=== PATIENT | female | born 1940 | race Caucasian/White ===

== ENCOUNTER 2017-01-23 05:51 | Day surgery (SDC) | payer MEDICARE ==
[2017-01-23] MEDS ORDERED: Dextrose 5%-Lactated Ringers 1,000 ML IV SCH (06:15)
[2017-01-23] MEDS ORDERED: Glycopyrrolate 0.2 MG/ML 2 ML SYRINGE IVPUSH ONE (07:00)
[2017-01-23] MEDS ORDERED: Propofol 200 MG/20 ML SDV ONE (07:30)
[2017-01-23] MEDS ORDERED: fentaNYL 100 MCG/2 ML SDV ONE (07:31)
[2017-01-23] MEDS ORDERED: Midazolam 1 MG/ML 2 ML SDV ONE (07:31)
[2017-01-23 09:25] VITALS: BP 105/60
--- NOTE | 2017-01-26 09:29 | OR ---
DATE OF PROCEDURE: 01/23/2017 PREOPERATIVE DIAGNOSIS: Intermittent epigastric pain. POSTOPERATIVE DIAGNOSES: Intermittent epigastric pain associated with: 1. Gastric polyp at the junction of antrum and body of the stomach. 2. Erosive antral gastritis. OPERATIVE PROCEDURE: Esophagogastroduodenoscopy with: 1. Biopsies of antrum for CLOtest. 2. Gastric polypectomy by snare technique. ANESTHESIA: IV sedation. INDICATION FOR PROCEDURE: A 76-year-old female presenting with some intermittent epigastric pain. She presently has not on any significant symptoms for about 2 weeks and has been off the Protonix for that perior of time as well. She had been on Protonix 40 mg daily. The plan is to proceed with upper GI endoscopy with biopsies and/or dilation as indicated. Potential risks including bleeding and perforation were discussed, and the patient wishes to proceed. DETAILS OF THE PROCEDURE: The patient was taken to the operating room and placed in a left lateral decubitus position. IV sedation was administered, after which the upper GI endoscope was passed orally through the length of the esophagus and into the stomach with retroflexion view of the fundus, and thereafter, through the pyloric channel and into the duodenum to the junction of the third and fourth portions. The findings included an abnormal hypopharynx, larynx, upper esophageal sphincter, and esophageal body. There was no significant inflammation or hiatal hernia at the EG junction. Within the stomach, there was a single small polyp that was measured around 3 mm to 4 mm. This is a slightly raised polyp with some white coloration, and apart from that, there was, in the antrum, diffuse erosive gastritis with multiple small erosions being present. No true ulcers were seen in the pyloric channel, and the visualized portions of the duodenum were unremarkable. At this point, biopsies were taken from the antrum for the CLOtest for H. pylori. Following this, using snare technique, polypectomy was obtained in 2 separate pieces and was sent for histologic evaluation. No bleeding from the biopsy sites was seen and the scope was withdrawn. The procedure was then concluded. The patient will be started back on the Protonix. We will notify the patient if the CLOtest is positive, or if there is something more significant than expected from the findings from the gastric polyp histology. Otherwise, she can follow up with Dr. Romero in about 2 weeks. One option on this patient would be to try something like Zantac or Pepcid, which would have less in the way of side effects than long-term proton pump inhibitor use. Lennox Fernandez MD /[id number]
== END 2017-01-23 09:43 | disposition home or self-care (01) ==
LOC: JP.SDS 05:51
PROVIDERS: ATTEND Surgery
DX: K29.50 Unspecified chronic gastritis without bleeding (principal); E66.9 Obesity, unspecified; Z88.8 Allergy status to other drugs, medicaments and biological substances; K27.9 Peptic ulcer, site unspecified, unspecified as acute or chronic, without hemorrhage or perforation
CPT/HCPCS: 43239; 43251; 87081; 88305; J2250; J2704; J3010; J7042

== ENCOUNTER 2020-04-13 03:04 | Emergency (ER) | payer MEDICARE ==
--- NOTE | 2020-04-13 03:27 | EDM.PDOC ---
ED HPI GENERAL MEDICAL PROBLEM - General Chief Complaint: Back Pain or Injury Stated Complaint: MEDICAL [facility] Time Seen by Provider: 04/13/20 03:21 Source of Information: Reports: Patient History Limitations: Reports: No Limitations - History of Present Illness INITIAL COMMENTS - FREE TEXT/NARRATIVE: pt arrived with a history of severe pain in the rt cva area radiating to the abdoman. She states this started suddenly yesterday pm. She has not noted blood in the urine. She does have a chronic sciatic problem in her left hip area. Onset: Other ( started yesterday pm. ) Duration: Hour(s): Location: Reports: Abdomen, Back Associated Symptoms: Reports: Weakness Right Posterior Back Pain Score (Numeric/FACES): 2 - Related Data Allergies Allergy/AdvReac Type Severity Reaction Status Date / Time NSAIDS (Non-Steroidal Allergy Bleeding Verified 04/13/20 03:15 Anti-Inflamma Home Meds: Home Meds Cholecalciferol (Vitamin D3) [Vitamin D3] 2,000 unit PO DAILY 01/26/16 [History] rOPINIRole HCl [Ropinirole HCl] 2 mg PO .EVENING PRN 01/26/16 [History] Brinzolamide [Azopt 1% Ophth Susp] 1 drop OP BID 06/25/19 [History] Latanoprost/Pf [Latanoprost 0.005% Eye Drop] 1 drop OP DAILY 06/25/19 [History] Dorzolamide [Trusopt 2% Ophth Soln] 1 drop TOP BID 04/13/20 [History] Past Medical History HEENT History: Reports: Cataract, Glaucoma, Impaired Vision Cardiovascular History: Reports: High Cholesterol Other Cardiovascular History: RLS Respiratory History: Reports: PE Other Respiratory History: PE 2012 Gastrointestinal History: Reports: Gastritis, GI Bleed, Irritable Bowel Syndrome, PUD Genitourinary History: Reports: None 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 RECOVERY SPECIALIST 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: Reports: Dysfunctional Uterine Bleeding, Endometriosis, Fibroids, , Prolapsed Uterus Other ASSET RECOVERY SPECIALIST History: H/o prolapsed bladder Musculoskeletal History: Reports: Arthritis, Back Pain, Chronic, Fracture, Fibromyalgia, Osteoarthritis, Osteoporosis Other Musculoskeletal History: L leg pain R knee pain Neurological History: Reports: None Other Neuro History: Intermittent R/L sciatica Endocrine/Metabolic History: Reports: Osteopenia, Osteoporosis Hematologic History: Reports: Anemia, Blood Transfusion(s) - Infectious Disease History Infectious Disease History: Reports: Chicken Pox, Measles, Mumps, Rubella - Past Surgical History Head Surgeries/Procedures: Reports: None HEENT Surgical History: Reports: Cataract Surgery, Radiocarotid Ectomy, Tonsillectomy Cardiovascular Surgical History: Reports: None Respiratory Surgical History: Reports: None GI Surgical History: Reports: Appendectomy, Colonoscopy, EGD Female Surgical History: Reports: Hysterectomy, Other (See Below) Other Female Surgeries/Procedures: surgery to fix prolapsed uterus Other Neurological Surgeries/Procedures: L3-4 pins and screws Musculoskeletal Surgical History: Reports: None Dermatological Surgical History: Reports: None Social & Family History - Family History Family Medical History: Noncontributory - Caffeine Use Caffeine Use: Reports: Tea ED ROS GENERAL - Review of Systems Review Of Systems: See Below Constitutional: Reports: No Symptoms HEENT: Reports: No Symptoms Respiratory: Reports: No Symptoms Cardiovascular: Reports: No Symptoms Endocrine: Reports: No Symptoms GI/Abdominal: Reports: Abdominal Pain, Other ( started in the rt back area and came around to the front. ) : Reports: No Symptoms Musculoskeletal: Reports: No Symptoms Skin: Reports: No Symptoms Neurological: Reports: No Symptoms Psychiatric: Reports: Anxiety ED EXAM,LOWER BACK PAIN/INJURY - Physical Exam Exam: See Below Text/Narrative:: pt arrived with a history of pain in the rt flank area coming around to the front. Pt was nauseated.Her pain started suddenly yesterday and has continued. Exam Limited By: No Limitations General Appearance: Alert, Anxious, Severe Distress, Other (pt received fentyl in the Ambulance which did give her relieve. ) Ears: Normal TMs Nose: Normal Inspection Throat/Mouth: Normal Inspection Head: Atraumatic Neck: Normal Inspection Respiratory/Chest: No Respiratory Distress Cardiovascular: Regular Rate, Rhythm, Tachycardia GI/Abdominal: Tender, Other (pt is tender in the rt cva area. ) (Female) Exam: Deferred Rectal (Female) Exam: Deferred Back Exam: Normal Inspection Extremities: Normal Inspection Neurological: Alert, Oriented x 3 Course - Vital Signs Last Recorded V/S: Last Vital Signs Temp 36.6 C 04/13/20 04:51 Pulse 67 04/13/20 04:51 Resp 16 04/13/20 04:51 BP 147/69 H 04/13/20 04:51 Pulse Ox 95 04/13/20 04:51 - Orders/Labs/Meds Labs: Laboratory Tests 04/13/20 04/13/20 04/13/20 Range/Units 03:35 03:35 03:35 WBC 6.7 (4.5-11.0) K/uL RBC 4.53 (3.30-5.50) M/uL Hgb 13.3 (12.0-15.0) g/dL Hct 42.4 (36.0-48.0) % MCV 94 (80-98) fL MCH 29 (27-31) pg MCHC 31 L (32-36) % Plt Count 184 (150-400) K/uL Neut % (Auto) 74 H (36-66) % Lymph % (Auto) 14 L (24-44) % [place] % (Auto) 10 H (2-6) % Eos % (Auto) 2 (2-4) % Baso % (Auto) 0 (0-1) % Sodium 146 (140-148) mmol/L Potassium 3.8 (3.6-5.2) mmol/L Chloride 110 H (100-108) mmol/L Carbon Dioxide 27 (21-32) mmol/L Anion Gap 12.8 (5.0-14.0) mmol/L BUN 26 H (7-18) mg/dL Creatinine 1.0 (0.6-1.0) mg/dL Est Cr Clr Drug Dosing 40.68 mL/min Estimated GFR (MDRD) 54 L (>60) Glucose 130 H (74-106) mg/dL Calcium 8.3 L (8.5-10.1) mg/dL Total Bilirubin 0.5 (0.2-1.0) mg/dL AST 23 (15-37) U/L ALT 22 (12-78) U/L Alkaline Phosphatase 47 (46-116) U/L C-Reactive Protein (0.0-0.3) mg/dL Total Protein 6.3 L (6.4-8.2) g/dL Albumin 3.7 (3.4-5.0) g/dL Globulin 2.6 (2.3-3.5) g/dL Albumin/Globulin Ratio 1.4 (1.2-2.2) Amylase (25-115) U/L Lipase (73-393) U/L Urine Color Yellow (YELLOW) Urine Appearance Clear (CLEAR) Urine pH 7.5 (5.0-8.0) Ur Specific [place] 1.025 (1.008-1.030) Urine Protein Negative (NEGATIVE) mg/dL Urine Glucose (UA) Negative (NEGATIVE) mg/dL Urine Ketones Negative (NEGATIVE) mg/dL Urine Occult Blood Trace-intact H (NEGATIVE) Urine Nitrite Negative (NEGATIVE) Urine Bilirubin Negative (NEGATIVE) Urine Urobilinogen 0.2 (0.2-1.0) EU/dL Ur Leukocyte Esterase Negative (NEGATIVE) Urine RBC 0-5 (0-5) Urine WBC 0-5 (0-5) Ur Epithelial Cells Rare Amorphous Sediment Few Urine Bacteria Few Urine Mucus Not seen 04/13/20 04/13/20 04/13/20 Range/Units 03:47 03:48 03:56 WBC (4.5-11.0) K/uL RBC (3.30-5.50) M/uL Hgb (12.0-15.0) g/dL Hct (36.0-48.0) % MCV (80-98) fL MCH (27-31) pg MCHC (32-36) % Plt Count (150-400) K/uL Neut % (Auto) (36-66) % Lymph % (Auto) (24-44) % [place] % (Auto) (2-6) % Eos % (Auto) (2-4) % Baso % (Auto) (0-1) % Sodium (140-148) mmol/L Potassium (3.6-5.2) mmol/L Chloride (100-108) mmol/L Carbon Dioxide (21-32) mmol/L Anion Gap (5.0-14.0) mmol/L BUN (7-18) mg/dL Creatinine (0.6-1.0) mg/dL Est Cr Clr Drug Dosing mL/min Estimated GFR (MDRD) (>60) Glucose (74-106) mg/dL Calcium (8.5-10.1) mg/dL Total Bilirubin (0.2-1.0) mg/dL AST (15-37) U/L ALT (12-78) U/L Alkaline Phosphatase (46-116) U/L C-Reactive Protein 0.05 (0.0-0.3) mg/dL Total Protein (6.4-8.2) g/dL Albumin (3.4-5.0) g/dL Globulin (2.3-3.5) g/dL Albumin/Globulin Ratio (1.2-2.2) Amylase 29 (25-115) U/L Lipase 170 (73-393) U/L Urine Color (YELLOW) Urine Appearance (CLEAR) Urine pH (5.0-8.0) Ur Specific [place] (1.008-1.030) Urine Protein (NEGATIVE) mg/dL Urine Glucose (UA) (NEGATIVE) mg/dL Urine Ketones (NEGATIVE) mg/dL Urine Occult Blood (NEGATIVE) Urine Nitrite (NEGATIVE) Urine Bilirubin (NEGATIVE) Urine Urobilinogen (0.2-1.0) EU/dL Ur Leukocyte Esterase (NEGATIVE) Urine RBC (0-5) Urine WBC (0-5) Ur Epithelial Cells Amorphous Sediment Urine Bacteria Urine Mucus Meds: Medications Discontinued Medications Generic Name Dose Route Start Last Admin Trade Name Freq PRN Reason Stop Dose Admin Sodium Chloride 1,000 mls @ 999 mls/hr 04/13/20 04:00 04/13/20 03:56 Normal Saline IV 999 mls/hr ASDIRECTED EMY Administration Sodium Chloride 1,000 mls @ 999 mls/hr 04/13/20 04:45 04/13/20 05:16 Normal Saline IV 999 mls/hr ASDIRECTED EMY Administration Ketorolac Tromethamine 30 mg 04/13/20 04:42 04/13/20 04:47 Toradol IVPUSH 04/13/20 04:43 30 mg ONETIME ONE Administration Tamsulosin HCl 0.4 mg 04/13/20 04:40 04/13/20 04:47 Flomax PO 04/13/20 04:41 0.4 mg ONETIME ONE Administration - Re-Assessments/Exams Free Text/Narrative Re-Assessment/Exam: 04/13/20 04:47 pt had a clear urine. Her cat scan showed a possible 3 mm stone in the rt mid ureter. . Pt was given flomax and torodol so will see how her pain settles down. 04/15/20 07:10 pt settled down nicely and she was able to rest. Pt will be discharged and will strain her urine and if this does not pass she will need to see urology Departure - Departure Time of Disposition: 07:01 Disposition: Home, Self-Care 01 Condition: Fair Clinical Impression: Ureteral calculi - Discharge Information Instructions: Bladder Stone Referrals: Ezio Romero MD [Primary Care Provider] - Forms: ED Department Discharge Care Plan Goals: strain all urine, push fluids. flomax .4 1 tab daily, torodol 10 mg q6h prn for pain, percocet 5/325 q6h prn for pain. follow up in the next 3 days with regular physian if stone does not pass. A urology consult would be inorder at that point. Sepsis Event Note (ED) - Evaluation Sepsis Screening Result: No Definite Risk
[2020-04-13] MEDS ORDERED: Sodium Chloride 0.9% 1,000 ML IV SCH ×2 (04:00→04:45)
--- NOTE | 2020-04-13 04:36 | CRLCT ---
INDICATION: Right flank pain TECHNIQUE: CT Abdomen and pelvis without i.v. contrast. Coronal and sagittal reformats were obtained. COMPARISON: 04/27/2018 FINDINGS: Lower chest: Unremarkable. Liver: Unremarkable. Spleen: Unremarkable. Pancreas: Unremarkable. Gallbladder: Unremarkable. Kidney: The appendix cannot be identified but there are no inflammatory changes noted in the right lower quadrant. Multiple cystic lesions are present in the upper pole of the left kidney with the largest measuring 9.3 cm and has a small focus of marginal calcification. Peripelvic cysts are present in the renal sinus bilaterally. Moderate right renal pelvic caliectasis is present with a right retroperitoneal calcification measuring 3 mm on image 53, series 5. Adrenal: Unremarkable. Bowel: Mild sigmoid diverticulosis is present with no evidence of diverticulitis. A small fat containing paraumbilical hernia is present. Vascular: Unremarkable. Lymph: Unremarkable. Peritoneum: See above. No pneumoperitoneum is seen. No significant ascites is noted. Pelvis: The patient is status post prior hysterectomy. Soft tissue: Unremarkable. Bone: Anterior and posterior spinal fusion with total laminectomies are noted from L2-L5. IMPRESSION: 1. Moderate right renal pelvic caliectasis is present with a right retroperitoneal calcification measuring 3 mm on image 53, series 5. correlation with history urinalysis is recommended to exclude a stone in the mid right ureter. Dictated by Finesse Abraham MD @ 04/13/2020 4:35:00 AM Please note that all CT scans at this facility use dose modulation, iterative reconstruction, and/or weight-based dosing when appropriate to reduce radiation dose to as low as reasonably achievable. Dictated by: Finesse Abraham MD @ 04/13/2020 04:35:06 (Electronically Signed)
[2020-04-13] MEDS ORDERED: Tamsulosin 0.4 MG Cap.ER PO ONE (04:40)
[2020-04-13] MEDS ORDERED: Ketorolac 30 MG/ML SDV IVPUSH ONE (04:42)
[2020-04-13 04:52] VITALS: BP 147/69; PULSE 67
== END 2020-04-13 07:23 | disposition home or self-care (01) ==
LOC: JP.ED 03:04
DX: N20.1 Calculus of ureter (principal); R00.0 Tachycardia, unspecified; Z88.6 Allergy status to analgesic agent; Z90.710 Acquired absence of both cervix and uterus
CPT/HCPCS: 36415; 74176; 80053; 81001; 82150; 83690; 85025; 86140; 96361; 96374; 99285; A9270; J1885; J7030; 99284

== ENCOUNTER 2020-05-11 16:26 | Emergency (ER) | payer MEDICARE ==
[2020-05-11] MEDS ORDERED: HYDROmorphone 0.5 MG/0.5 ML Syringe IVPUSH ONE (17:08)
--- NOTE | 2020-05-11 17:08 | EDM.PDOC ---
<OfficerAgustín - Last Filed: 05/12/20 00:15> ED HPI GENERAL MEDICAL PROBLEM - General Chief Complaint: Flank Pain Stated Complaint: KIDNEY STONES, VOMITING Time Seen by Provider: 05/11/20 16:55 - Related Data Allergies Allergy/AdvReac Type Severity Reaction Status Date / Time NSAIDS (Non-Steroidal Allergy Bleeding Verified 05/11/20 16:45 Anti-Inflamma Home Meds: Home Meds Cholecalciferol (Vitamin D3) [Vitamin D3] 2,000 unit PO DAILY 01/26/16 [History] rOPINIRole HCl [Ropinirole HCl] 2 mg PO BEDTIME PRN 01/26/16 [History] Brinzolamide [Azopt 1% Ophth Susp] 1 drop OP BID 06/25/19 [History] Latanoprost/Pf [Latanoprost 0.005% Eye Drop] 1 drop OP DAILY 06/25/19 [History] Dorzolamide [Trusopt 2% Ophth Soln] 1 drop TOP BID 04/13/20 [History] Ketorolac [Toradol] 10 mg PO Q6HR PRN 05/11/20 [History] Tamsulosin HCl 1 tab PO DAILY 05/11/20 [History] Ketorolac [Toradol] 10 mg PO Q6H PRN #20 tab 05/12/20 [Rx] Departure - Departure Time of Disposition: 00:18 Disposition: Home, Self-Care 01 Condition: Fair Clinical Impression: Renal rupture Qualifiers: Encounter type: initial encounter Laterality: right Qualified Code(s): S37.061A - Major laceration of right kidney, initial encounter - Discharge Information Prescriptions: Ketorolac [Toradol] 10 mg PO Q6H PRN #20 tab PRN Reason: Pain Instructions: Flank Pain, Adult, [id number] Referrals: Ezio Romero MD [Primary Care Provider] - Forms: ED Department Discharge Additional Instructions: Continue to use your ketorolac as needed for pain control, will use your oxycodone for breakthrough pain, a new prescription for the ketorolac has been faxed to [facility] pharmacy. Please keep your follow-up appointment with urology on Monday, please return to the emergency department with fever or increasing pain - Assessment/Plan Plan: Assessment Acuity = acute Site and laterality = pyelosinus extravasation Etiology = probably related to nephrolithiasis Manifestations = flank pain Location of injury = Home Lab values = CBC, BMP, urinalysis unremarkable CT scan describes the extravasation above Plan Call discussed case with Dr. Hollingsworth urologist at [address] [facility] also discussed the case with Dr. Abraham from radiology, felt this was not ureter rupture and was contained within the kidney she does have an appointment with urology on Monday, plan is discharged home follow-up as outpatient This note was dictated using [employer] voice recognition software please call with any questions on syntax or grammar. <Ezio Collins - Last Filed: 05/15/20 08:09> ED HPI GENERAL MEDICAL PROBLEM - General Source of Information: Reports: Patient, Family History Limitations: Reports: No Limitations - History of Present Illness INITIAL COMMENTS - FREE TEXT/NARRATIVE: 79-year-old female with persistent recurring right flank pain radiating around to the right lower abdomen for the past month. Onset: Other (Symptoms have been waxing and waning for a month) Duration: Other (Increase in symptoms over the past 2 days) Location: Reports: Back (Right flank and right lower abdomen) Associated Symptoms: Reports: Malaise, Nausea/Vomiting. 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: Dysfunctional Uterine Bleeding, Endometriosis, Fibroids, , Prolapsed Uterus Other ROLL BUILDER History: H/o prolapsed bladder Musculoskeletal History: Reports: Arthritis, Back Pain, Chronic, Fracture, Fibromyalgia, Osteoarthritis, Osteoporosis Other Musculoskeletal History: L leg pain R knee pain Neurological History: Reports: None Other Neuro History: Intermittent R/L sciatica Endocrine/Metabolic History: Reports: Osteopenia, Osteoporosis Hematologic History: Reports: Anemia, Blood Transfusion(s) - Infectious Disease History Infectious Disease History: Reports: Chicken Pox, Measles, Mumps, Rubella - Past Surgical History Head Surgeries/Procedures: Reports: None HEENT Surgical History: Reports: Cataract Surgery, Radiocarotid Ectomy, Tonsillectomy Cardiovascular Surgical History: Reports: None Respiratory Surgical History: Reports: None GI Surgical History: Reports: Appendectomy, Colonoscopy, EGD Female Surgical History: Reports: Hysterectomy, Other (See Below) Other Female Surgeries/Procedures: surgery to fix prolapsed uterus Other Neurological Surgeries/Procedures: L3-4 pins and screws Musculoskeletal Surgical History: Reports: None Dermatological Surgical History: Reports: None Social & Family History - Family History Family Medical History: Noncontributory - Tobacco Use Tobacco Use Status *Q: Never Tobacco User - Caffeine Use Caffeine Use: Reports: Tea ED ROS GENERAL - Review of Systems Review Of Systems: See Below Constitutional: Reports: Malaise, Decreased Appetite. Denies: Fever, Chills HEENT: Reports: No Symptoms Respiratory: Denies: Shortness of Breath Cardiovascular: Denies: Chest Pain GI/Abdominal: Reports: Abdominal Pain, Nausea (Right lower abdomen), Vomiting : Reports: Flank Pain. Denies: Dysuria, Frequency, Urgency Skin: Reports: No Symptoms Neurological: Reports: No Symptoms ED EXAM, GENERAL - Physical Exam Exam: See Below Exam Limited By: No Limitations General Appearance: Alert, Moderate Distress (Fairly uncomfortable) Eye Exam: Bilateral Eye: Normal Inspection Head: Atraumatic Neck: Normal Inspection Respiratory/Chest: No Respiratory Distress, Lungs Clear Cardiovascular: Regular Rate, Rhythm GI/Abdominal: Other (Patient responds with tenderness to palpation of the right lower abdomen) Extremities: Normal Inspection Neurological: Alert, Oriented Psychiatric: Anxious Skin Exam: Warm, Dry Course - Vital Signs Last Recorded V/S: Last Vital Signs Temp 97.2 F 05/11/20 23:30 Pulse 61 05/11/20 23:30 Resp 16 05/11/20 23:30 BP 132/64 05/11/20 23:30 Pulse Ox 95 05/11/20 23:30 - Orders/Labs/Meds Labs: Laboratory Tests 05/11/20 05/11/20 05/11/20 Range/Units 17:27 17:27 18:00 WBC 6.6 (4.5-11.0) K/uL RBC 4.45 (3.30-5.50) M/uL Hgb 12.8 (12.0-15.0) g/dL Hct 40.0 (36.0-48.0) % MCV 90 (80-98) fL MCH 29 (27-31) pg MCHC 32 (32-36) % Plt Count 195 (150-400) K/uL Neut % (Auto) 73 H (36-66) % Lymph % (Auto) 15 L (24-44) % [place] % (Auto) 10 H (2-6) % Eos % (Auto) 2 (2-4) % Baso % (Auto) 0 (0-1) % Sodium 137 L (140-148) mmol/L Potassium 4.3 (3.6-5.2) mmol/L Chloride 105 (100-108) mmol/L Carbon Dioxide 22 (21-32) mmol/L Anion Gap 14.3 H (5.0-14.0) mmol/L BUN 34 H (7-18) mg/dL Creatinine 1.0 (0.6-1.0) mg/dL Est Cr Clr Drug Dosing 40.68 mL/min Estimated GFR (MDRD) 54 L (>60) Glucose 95 (74-106) mg/dL Calcium 8.9 (8.5-10.1) mg/dL Urine Color Yellow (YELLOW) Urine Appearance Clear (CLEAR) Urine pH 7.0 (5.0-8.0) Ur Specific [place] 1.020 (1.008-1.030) Urine Protein Negative (NEGATIVE) mg/dL Urine Glucose (UA) Negative (NEGATIVE) mg/dL Urine Ketones Negative (NEGATIVE) mg/dL Urine Occult Blood Negative (NEGATIVE) Urine Nitrite Negative (NEGATIVE) Urine Bilirubin Negative (NEGATIVE) Urine Urobilinogen 0.2 (0.2-1.0) EU/dL Ur Leukocyte Esterase Negative (NEGATIVE) Urine RBC Not seen (0-5) Urine WBC Not seen (0-5) Ur Epithelial Cells Not seen Amorphous Sediment Not seen Urine Bacteria Rare Urine Mucus Not seen Meds: Medications Discontinued Medications Generic Name Dose Route Start Last Admin Trade Name Freq PRN Reason Stop Dose Admin Hydromorphone HCl 0.5 mg 05/11/20 17:08 05/11/20 17:55 Dilaudid IVPUSH 05/11/20 17:09 0.5 mg ONETIME ONE Administration Hydromorphone HCl 1 mg 05/11/20 20:17 05/11/20 20:23 Dilaudid IVPUSH 05/11/20 20:18 1 mg ONETIME ONE Administration Sodium Chloride 1,000 mls @ 500 mls/hr 05/11/20 17:15 05/11/20 17:55 Normal Saline IV 500 mls/hr ASDIRECTED EMY Administration Sodium Chloride 100 mls @ 3 mls/sec 05/11/20 18:15 05/11/20 18:58 Normal Saline IV 2.5 mls/sec ASDIRECTED EMY Administration Sodium Chloride 100 mls @ 3 mls/sec 05/11/20 22:00 05/11/20 22:09 Normal Saline IV 2 mls/sec ASDIRECTED EMY Administration Iopamidol 100 ml 05/11/20 18:15 05/11/20 18:59 Isovue-300 (61%) IV 80 ml . DIRECTED EMY Administration Iopamidol 100 ml 05/11/20 22:00 05/11/20 22:10 Isovue-300 (61%) IV 100 ml . DIRECTED EMY Administration Ondansetron HCl 4 mg 05/11/20 17:57 05/11/20 18:05 Zofran IVPUSH 05/11/20 17:58 4 mg ONETIME ONE Administration Sodium Chloride 10 ml 05/11/20 18:14 05/11/20 22:10 Saline Flush FLUSH 05/11/20 18:15 10 ml ONETIME ONE Administration Sodium Chloride 10 ml 05/11/20 21:47 Saline Flush FLUSH 05/11/20 21:48 ONETIME ONE - Re-Assessments/Exams Free Text/Narrative Re-Assessment/Exam: 05/11/20 17:59 An IV was started, patient was given 0.5 mg of IV Dilaudid and 4 of Zofran. CBC and BMP were obtained, if kidney function is good and IV enhanced abdomen and pelvis CT scan will be obtained. 05/11/20 18:18 Labs were reassuring, CT of the abdomen and pelvis with IV contrast was ordered. Sepsis Event Note (ED) - Evaluation Sepsis Screening Result: No Definite Risk
[2020-05-11] MEDS ORDERED: Sodium Chloride 0.9% 1,000 ML IV SCH (17:15)
[2020-05-11] MEDS ORDERED: Ondansetron 4 MG/2 ML SDV IVPUSH ONE (17:57)
[2020-05-11] MEDS ORDERED: Iopamidol 612 MG/ML 100 ML Bottle IV SCH ×2 (18:15→22:00)
[2020-05-11] MEDS ORDERED: Sodium Chloride 0.9% 100 ML IV SCH ×2 (18:15→22:00)
[2020-05-11] MEDS: Sodium Chloride 0.9% 10 ML Syringe FLUSH ONE ×2 (18:59→22:10)
--- NOTE | 2020-05-11 19:30 | CRLCT ---
Indication: right flank pain, abdominal pain Technique: Postcontrast CT abdomen and pelvis. 85 cc Isovue-300 administered in total. 50 cc administered using infusion pump and 35 cc administered manually after the IV line failed. Please note that all CT scans at this facility use dose modulation, iterative reconstruction, and/or weight-based dosing when appropriate to reduce radiation dose to as low as reasonably achievable. Comparison: 05/05/2020 Findings: Mild dependent atelectasis. No pleural effusion. There are 2 intrahepatic lesions, 1 within the right hepatic lobe near the dome measuring 9 millimeters and 1 adjacent to the gallbladder measuring 1 centimeter. No cirrhosis. The spleen is normal in size. Multiple left renal cysts again noted with the largest measuring 7.5 centimeters. Normal excretion of contrast around several parapelvic cysts regarding the left kidney. Right hydronephrosis is present with decreased clearing of contrast and decreased attenuation of the right renal parenchyma. There has been interval development of ill-defined fluid inferior to the right kidney extending along the right lateral conal fascia and into the right side of the pelvis. Adrenal glands normal. Ectasia of the pancreatic duct again noted. Gallbladder normal. Colonic stool. No small bowel obstruction. Bladder appears normal. Status post hysterectomy. Multiple pelvic phleboliths. No adnexal mass. Postoperative changes to the lumbar spine. No hardware complication or fracture. Impression: Interval development of fluid and edema surrounding the right kidney inferiorly and extending along the right lateral conal fascia into the right side of the pelvis consistent with rupture of the right renal collecting system/proximal ureter. Associated decreased attenuation of the right renal parenchyma is present along with delayed excretion of contrast from the obstructed right renal collecting system (hydronephrosis) consistent with obstructive uropathy. Multiple left parapelvic renal cysts and several large cysts arising from the left kidney upper pole. Indeterminate low-density lesions within the liver, 1 measuring 9 millimeters and a 2nd measuring [address] or MRI recommended for further evaluation on a nonemergent basis. Please note that all CT scans at this facility use dose modulation, iterative reconstruction, and/or weight-based dosing when appropriate to reduce radiation dose to as low as reasonably achievable. Dictated by Eddie Coates MD @ May 11 2020 7:19PM Signed by Dr. Eddie Coates @ May 11 2020 7:30PM
[2020-05-11] MEDS ORDERED: HYDROmorphone 1 MG/ML Syringe IVPUSH ONE (20:17)
[2020-05-11] MEDS ORDERED: Sodium Chloride 0.9% 10 ML Syringe FLUSH ONE (21:47)
--- NOTE | 2020-05-11 22:51 | CRLCT ---
INDICATION: Right flank pain TECHNIQUE: CT Abdomen and pelvis urogram with and without i.v. contrast. Post-contrast images were obtained in the nephrographic and delayed phases. Coronal and sagittal reformats were obtained. CONTRAST: 100 mL Isovue 300 COMPARISON: 05/11/2020, 05/05/2020 FINDINGS: Lower chest: Unremarkable. Liver: Indeterminate liver lesions are present measuring 1.2 cm in the liver dome and 1 cm near the gallbladder fossa. Spleen: Unremarkable. Pancreas: The pancreatic duct is near the upper limits of normal in size without interval change. Gallbladder: Unremarkable. Kidney: No kidney or ureteral stones or obstruction seen. Moderate right renal pyelocaliectasis is present with contrast extravasation in the right perirenal space surrounding the right renal pelvis and extending inferiorly into the right pelvis. Numerous peripelvic cysts are present within the left kidney with large septated cysts in the left upper pole measuring up to 9.3 cm. Numerous bilateral pelvic phleboliths are present. There are areas of coarse calcification within the right ovary seen. Adrenal: Unremarkable. Bowel: Unremarkable. The appendix is not identified. Vascular: Unremarkable. Lymph: Unremarkable. Peritoneum: See above. No pneumoperitoneum is seen. No significant ascites is noted. Pelvis: See above. The bladder is partially opacified on delayed images and is unremarkable in appearance. Soft tissue: Unremarkable. Bone: Anterior and posterior spinal fusion and total laminectomies of L2 through L5 is noted. IMPRESSIONS: 1. Moderate right renal pyelocaliectasis is present with contrast extravasation in the right perirenal space surrounding the right renal pelvis and extending inferiorly into the right pelvis. Findings are consistent with pyelosinus extravasation. 2. Indeterminate liver lesions are present measuring 1.2 cm in the liver dome and 1 cm near the gallbladder fossa. Previous recommendation for liver MRI assessment is reiterated. Dictated by Finesse Abraham MD @ 05/11/2020 10:49:21 PM Please note that all CT scans at this facility use dose modulation, iterative reconstruction, and/or weight-based dosing when appropriate to reduce radiation dose to as low as reasonably achievable. Dictated by: Finesse Abraham MD @ 05/11/2020 22:50:58 (Electronically Signed)
[2020-05-12 00:27] VITALS: BP 132/64; PULSE 61
== END 2020-05-12 00:27 | disposition home or self-care (01) ==
LOC: JP.ED 16:26
DX: S37.061A Major laceration of right kidney, initial encounter (principal); E78.00 Pure hypercholesterolemia, unspecified; Z88.6 Allergy status to analgesic agent; Z79.899 Other long term (current) drug therapy; Z90.49 Acquired absence of other specified parts of digestive tract; Z90.710 Acquired absence of both cervix and uterus; X58.XXXA Exposure to other specified factors, initial encounter
CPT/HCPCS: 36415; 74177; 74178; 80048; 81001; 85025; 96374; 96375; 96376; 99284; J1170; J2405; J7030; Q9967

== ENCOUNTER 2020-05-30 13:16 | Emergency (ER) | payer MEDICARE ==
[2020-05-30 13:23] VITALS: BP 156/67; PULSE 68
--- NOTE | 2020-05-30 14:28 | EDM.PDOC ---
ED HPI GENERAL MEDICAL PROBLEM - General Chief Complaint: Genitourinary Problem Stated Complaint: BACK PAIN Time Seen by Provider: 05/30/20 14:22 Source of Information: Reports: Patient History Limitations: Reports: No Limitations - History of Present Illness INITIAL COMMENTS - FREE TEXT/NARRATIVE: pt had a rt nephostomy tube placed on thur by Dr Simpson in [facility]. Jayme tubbs was discharged home and did well until 8 pm last nite and she has not had any drainage since that time. She developed very severe pain in her bback and did call a ambulance. Onset: Today, Sudden, Gradual, Other ( started last nite. ) Duration: Hour(s): Location: Reports: Abdomen, Back Associated Symptoms: Reports: No Other Symptoms - Related Data Allergies Allergy/AdvReac Type Severity Reaction Status Date / Time NSAIDS (Non-Steroidal Allergy Bleeding Verified 05/30/20 13:25 Anti-Inflamma Home Meds: Home Meds Cholecalciferol (Vitamin D3) [Vitamin D3] 2,000 unit PO DAILY 01/26/16 [History] rOPINIRole HCl [Ropinirole HCl] 2 mg PO BEDTIME PRN 01/26/16 [History] Dorzolamide [Trusopt 2% Ophth Soln] 1 drop TOP BID 04/13/20 [History] Brimonidine Tartrate/Timolol [Combigan 0.2%-0.5% Eye Drops] 1 drop EYEBOTH BID 05/30/20 [History] Past Medical History HEENT History: Reports: Cataract, Glaucoma, Impaired Vision Cardiovascular History: Reports: High Cholesterol Other Cardiovascular History: RLS Respiratory History: Reports: PE Other Respiratory History: PE 2012 Gastrointestinal History: Reports: Gastritis, GI Bleed, Irritable Bowel Syndrome, PUD Genitourinary History: Reports: None DIRECTOR RISK History: Reports: Dysfunctional Uterine Bleeding, Endometriosis, Fibroids, , Prolapsed Uterus Other DIRECTOR RISK History: H/o prolapsed bladder Musculoskeletal History: Reports: Arthritis, Back Pain, Chronic, Fracture, Fibromyalgia, Osteoarthritis, Osteoporosis Other Musculoskeletal History: L leg pain R knee pain Neurological History: Reports: None Other Neuro History: Intermittent R/L sciatica Endocrine/Metabolic History: Reports: Osteopenia, Osteoporosis Hematologic History: Reports: Anemia, Blood Transfusion(s) - Infectious Disease History Infectious Disease History: Reports: Chicken Pox, Measles, Mumps, Rubella - Past Surgical History Head Surgeries/Procedures: Reports: None HEENT Surgical History: Reports: Cataract Surgery, Radiocarotid Ectomy, Tonsillectomy Cardiovascular Surgical History: Reports: None Respiratory Surgical History: Reports: None GI Surgical History: Reports: Appendectomy, Colonoscopy, EGD Female Surgical History: Reports: Hysterectomy, Other (See Below) Other Female Surgeries/Procedures: surgery to fix prolapsed uterus Neurological Surgical History: Reports: Lumbar Spine, Spinal Fusion Other Neurological Surgeries/Procedures: L3-4 pins and screws Musculoskeletal Surgical History: Reports: None Other Musculoskeletal Surgeries/Procedures:: back surgery x2 Dermatological Surgical History: Reports: None Social & Family History - Family History Family Medical History: No Pertinent Family History - Tobacco Use Tobacco Use Status *Q: Never Tobacco User - Caffeine Use Caffeine Use: Reports: Tea ED ROS GENERAL - Review of Systems Review Of Systems: See Below Constitutional: Reports: No Symptoms HEENT: Reports: No Symptoms Respiratory: Reports: No Symptoms Cardiovascular: Reports: No Symptoms Endocrine: Reports: No Symptoms GI/Abdominal: Reports: Abdominal Pain, Other (pt has severe rt cva and abdomanal pain. ) : Reports: Other (pt had a nephrostomy tube placed on thur at [facility]. ) Musculoskeletal: Reports: No Symptoms Skin: Reports: No Symptoms ED EXAM, RENAL/ - Physical Exam Exam: See Below Text/Narrative:: PT HAD A NEPHROSTOMY TUBE INSERTED ON tHUR IN [facility]. pT FEELS LIKE SINCE 8 PM LAST NITE THE TUBE HAS NOT BEEN DRAINING. Exam Limited By: No Limitations General Appearance: Alert, Anxious Ears: Normal TMs Nose: Normal Inspection Throat/Mouth: Normal Inspection Head: Atraumatic Neck: Normal Inspection Respiratory/Chest: No Respiratory Distress Cardiovascular: Regular Rate, Rhythm GI/Abdominal: Other (PAIN IN THE RT CVA AREA AND BACK. ) Rectal (Female) Exam: Deferred Back Exam: CVA Tenderness (R) Extremities: Normal Inspection Neurological: Alert, Oriented, Normal Cognition Course - Vital Signs Last Recorded V/S: Last Vital Signs Temp 36.2 C 05/30/20 13:35 Pulse 68 05/30/20 13:35 Resp 16 05/30/20 13:35 BP 156/67 H 05/30/20 13:35 Pulse Ox 94 L 05/30/20 13:35 - Orders/Labs/Meds Meds: Medications Discontinued Medications Generic Name Dose Route Start Last Admin Trade Name Cornelio PRN Reason Stop Dose Admin Hydromorphone HCl 1 mg 05/30/20 14:57 05/30/20 15:08 Dilaudid IVPUSH 05/30/20 14:58 1 mg ONETIME ONE Administration - Re-Assessments/Exams Free Text/Narrative Re-Assessment/Exam: 05/30/20 16:20 PT WAS NOT HAVING DRAINAGE FROM THE RT NEPHROSTOMY TUBE THAT WAS PLACED ON THUR. sHE HAD ACUTE PAIN . a CAT SCAN OF THE ABDOMAN WAS OBTAINED WHICH SHOWED GOOD PLACEMENT. sHE WAS IRRIGATED WITH 10 CC IN THE NEPHOSTOMY PORTION WHICH OPENED IT UP AND SHE IS NOW DRAINING. Departure - Departure Time of Disposition: 16:16 Disposition: Home, Self-Care 01 Condition: Fair Clinical Impression: Obstructed nephrostomy tube - Discharge Information Referrals: Ezio Romero MD [Primary Care Provider] - Forms: ED Department Discharge Care Plan Goals: PUSH FLUIDS, RTC IF FURTHER PROBLEMS. CONTINUE SAME MEDS. Sepsis Event Note (ED) - Evaluation Sepsis Screening Result: No Definite Risk - Focused Exam Vital Signs: Vital Signs Temp Pulse Resp BP Pulse Ox 05/30/20 13:35 36.2 C 68 16 156/67 H 94 L 05/30/20 13:20 36.2 C 68 16 156/67 H 94 L
[2020-05-30] MEDS ORDERED: HYDROmorphone 1 MG/ML Syringe IVPUSH ONE (14:57)
--- NOTE | 2020-05-30 15:16 | CRLCT ---
INDICATION: Recent right-sided nephrostomy tube placement reportedly non functioning. TECHNIQUE: Noncontrast CT of the abdomen and pelvis. COMPARISON: CT urogram May 11, 2020. FINDINGS: Since the prior study a right-sided nephrostomy tube has been placed. It does appear to be appropriately positioned with the pigtail portion curled in the superior aspect of the right renal pelvis. The previous identified pelvocaliectasis is mildly improved but not absent. There is a small amount of perinephric hemorrhage decreased compared to the prior study. Left-sided parapelvic and renal cysts some of which are large containing mural calcification arising from the superior pole the left kidney. No left-sided hydronephrosis. The unenhanced liver is unremarkable. The 2 subtle lesions identified on the prior CT are not well seen on this noncontrast study. No splenomegaly. The pancreas, gallbladder, and adrenal glands are normal. Vascular calcification within a normal caliber abdominal aorta and iliac arteries. Circumaortic left renal vein which is a normal anatomic variant. No bowel obstruction or ileus. Calcifications within the right ovary seen previously. Multiple calcified pelvic phleboliths. The urinary bladder is unremarkable except for a tiny dot of air likely due to recent instrumentation. Postsurgical change from L2 through L5 with anterior and posterior fusion and multilevel laminectomies. Minor linear fibrosis or atelectasis at the right lung base and inferior right middle lobe. IMPRESSION: 1. Single right-sided nephrostomy tube in good position. Mild improvement in the pelvocaliectasis compared to the prior study. Decrease in the amount of right perinephric hemorrhage/fat stranding. 2. Left renal cysts. No left-sided hydronephrosis. 3. Vascular calcification in the abdomen and pelvis both arterial and venous. Please note that all CT scans at this facility use dose modulation, iterative reconstruction, and/or weight-based dosing when appropriate to reduce radiation dose to as low as reasonably achievable. Dictated by Efrain De Souza MD @ May 30 2020 3:04PM Signed by Dr. Efrain De Souza @ May 30 2020 3:14PM
== END 2020-05-30 17:15 | disposition home or self-care (01) ==
LOC: JP.ED 13:16
DX: N99.522 Malfunction of incontinent external stoma of urinary tract (principal); Z88.8 Allergy status to other drugs, medicaments and biological substances; Z79.899 Other long term (current) drug therapy
CPT/HCPCS: 74176; 96374; 99284; J1170

== ENCOUNTER 2024-02-07 08:06 | Day surgery (SDC) | payer MEDICARE ==
[~2024-02-07 08:06] MED LIST: Bupivacaine 0.5% 30 ML SDV ONE
[2024-02-07] MEDS ORDERED: Propofol 200 MG/20 ML SDV ONE ×2 (08:38→12:47)
[2024-02-07] MEDS ORDERED: fentaNYL 100 MCG/2 ML SDV ONE (08:38)
[2024-02-07] MEDS ORDERED: Midazolam 1 MG/ML 2 ML SDV ONE (08:38)
[2024-02-07 08:42] LABS: BASOPHILS PERCENT AUTO 0.4 % (0.1-1.3); EOSINOPHILS ABSOLUTE AUTO 0.14 K/uL (0.00-0.40); EOSINOPHILS PERCENT AUTO 2.7 % (0.0-5.4); HEMATOCRIT 42.6 % (34.3-46.0); HEMOGLOBIN 14.5 g/dL (11.2-15.5); IMMATURE GRAN ABSOLUTE AUTO 0.04 K/uL (0.00-0.23); IMMATURE GRAN PERCENT AUTO 0.8 % (0.0-0.7); LYMPHOCYTES ABSOLUTE AUTO 1.01 K/uL (0.8-3.3); LYMPHOCYTES PERCENT AUTO 19.8 % (11.4-47.7); MEAN CORPUSCULAR VOLUME 88.2 fL (81.4-99.0); MONOCYTES ABSOLUTE AUTO 0.59 K/uL (0.20-0.90); MONOCYTES PERCENT AUTO 11.6 % (3.3-12.6); NEUTROPHILS PERCENT AUTO 64.7 % (40.0-78.1); PLATELET COUNT,PLT 236 K/uL (130-375); RED BLOOD CELL COUNT 4.83 M/uL (3.77-5.24); WHITE BLOOD CELL COUNT,WBC 5.1 K/uL (3.2-11.0)
[2024-02-07 08:44] LABS: BASOPHILS ABSOLUTE AUTO 0.02 K/uL (0.00-0.10)
[2024-02-07 08:57] LABS: CALCIUM 8.8 mg/dL (8.5-10.1); CREATININE 0.8 mg/dL (0.6-1.0); EST CRCL DRUG DOSING (CG) 47.62 mL/min; POTASSIUM,K 3.2 mmol/L (3.6-5.2)
[2024-02-07 08:58] LABS: ANION GAP 13.2 mmol/L (5.0-14.0)
[2024-02-07] MEDS: Nozin Nasal Sanitizer NASBOTH ONE (09:05)
[2024-02-07] MEDS: Lactated Ringers 1,000 ML IV SCH (09:22)
[2024-02-07] MEDS: ceFAZolin 1 GM in Premix Bag 1 BAG IV ONE (11:35)
[2024-02-07 16:26] VITALS: BP 157/74; PULSE 54
== END 2024-02-07 15:55 | disposition home or self-care (01) ==
LOC: JP.SDS 08:06
PROVIDERS: ATTEND Specialist
DX: M75.102 Unspecified rotator cuff tear or rupture of left shoulder, not specified as traumatic (principal); S46.212A Strain of muscle, fascia and tendon of other parts of biceps, left arm, initial encounter; E78.5 Hyperlipidemia, unspecified; Z87.891 Personal history of nicotine dependence; X58.XXXA Exposure to other specified factors, initial encounter
CPT/HCPCS: 01630; 29827; 36415; 80048; 85025; A9270; C1713; J0665; J0689; J2250; J2704; J3010; J7120

== ENCOUNTER 2025-01-08 07:14 | Day surgery (SDC) | payer MEDICARE ==
[2025-01-08 07:49] LABS: HEMATOCRIT 40.4 % (34.3-46.0); HEMOGLOBIN 12.7 g/dL (11.2-15.5); MEAN CORPUSCULAR HEMOGLOBIN 28.2 pg (31.6-35.5); MEAN CORPUSCULAR HGB CONC 31.4 g/dL (31.6-35.5); MEAN CORPUSCULAR VOLUME 89.8 fL (81.4-99.0); RED BLOOD CELL COUNT 4.5 M/uL (3.77-5.24); WHITE BLOOD CELL COUNT,WBC 7.5 K/uL (3.2-11.0)
[2025-01-08] MEDS ORDERED: Nozin Nasal Sanitizer NASBOTH SCH (08:00)
[2025-01-08] MEDS ORDERED: Nozin Nasal Sanitizer NASBOTH ONE (08:00)
[2025-01-08 08:05] LABS: ANION GAP 10.8 mmol/L (5.0-14.0); BLOOD UREA NITROGEN,BUN 23 mg/dL (7-18); CALCIUM 9.1 mg/dL (8.5-10.1); CARBON DIOXIDE,CO2 28 mmol/L (21-32); CHLORIDE,CL 104 mmol/L (100-108); CREATININE 0.6 mg/dL (0.6-1.0); ESTIMATED GFR 90 mL/min (>60); GLUCOSE RANDOM 108 mg/dL (74-106); POTASSIUM,K 3.7 mmol/L (3.6-5.2); SODIUM,NA 143 mmol/L (140-148)
[2025-01-08] MEDS: Nozin Nasal Sanitizer NASBOTH ONE (08:27)
[2025-01-08] MEDS: Lactated Ringers 1,000 ML IV SCH (08:28)
[2025-01-08] MEDS ORDERED: fentaNYL 100 MCG/2 ML SDV ONE (08:30)
[2025-01-08] MEDS ORDERED: Propofol 200 MG/20 ML SDV ONE ×2 (08:30→10:32)
[2025-01-08] MEDS ORDERED: Midazolam 1 MG/ML 2 ML SDV ONE (08:30)
[2025-01-08] MEDS ORDERED: Bupivacaine 0.5% 30 ML SDV ONE (08:33)
[2025-01-08] MEDS: ceFAZolin 2 GM in Premix Bag 1 BAG IV ONE (10:00)
[2025-01-08 14:43] VITALS: BP 107/41; PULSE 67
== END 2025-01-08 15:15 | disposition home or self-care (01) ==
LOC: JP.SDS 07:14
PROVIDERS: ATTEND Specialist
DX: M75.121 Complete rotator cuff tear or rupture of right shoulder, not specified as traumatic (principal); S43.431A Superior glenoid labrum lesion of right shoulder, initial encounter; S46.111A Strain of muscle, fascia and tendon of long head of biceps, right arm, initial encounter; M75.41 Impingement syndrome of right shoulder; M71.9 Bursopathy, unspecified; M19.011 Primary osteoarthritis, right shoulder; Z88.8 Allergy status to other drugs, medicaments and biological substances; Z79.899 Other long term (current) drug therapy; L76.21 Postprocedural hemorrhage of skin and subcutaneous tissue following a dermatologic procedure; E78.00 Pure hypercholesterolemia, unspecified; Z88.6 Allergy status to analgesic agent; Z86.16 Personal history of COVID-19
CPT/HCPCS: 01630; 29826; 29827; 36415; 71046; 80048; 84484; 85025; 85027; 93005; 93010; 99283; 99285; A9270; C1713; J0665; J0690; J2250; J2704; J3010; J7120

== ENCOUNTER 2025-01-08 21:03 | Emergency (ER) | payer MEDICARE ==
[2025-01-08 21:30] LABS: BASOPHILS ABSOLUTE AUTO 0.03 K/uL (0.00-0.10); BASOPHILS PERCENT AUTO 0.3 % (0.1-1.3); EOSINOPHILS ABSOLUTE AUTO 0.09 K/uL (0.00-0.40); HEMATOCRIT 37.9 % (34.3-46.0); HEMOGLOBIN 12.1 g/dL (11.2-15.5); IMMATURE GRAN ABSOLUTE AUTO 0.03 K/uL (0.00-0.23); IMMATURE GRAN PERCENT AUTO 0.3 % (0.0-0.7); LYMPHOCYTES ABSOLUTE AUTO 0.62 K/uL (0.8-3.3); MEAN CORPUSCULAR HEMOGLOBIN 28.4 pg (31.6-35.5); MEAN CORPUSCULAR HGB CONC 31.9 g/dL (31.6-35.5); MONOCYTES ABSOLUTE AUTO 0.65 K/uL (0.20-0.90); MONOCYTES PERCENT AUTO 7.4 % (3.3-12.6); NEUTROPHILS ABSOLUTE AUTO 7.38 K/uL (1.0-7.6); PLATELET COUNT,PLT 273 K/uL (130-375); RED BLOOD CELL COUNT 4.26 M/uL (3.77-5.24); WHITE BLOOD CELL COUNT,WBC 8.8 K/uL (3.2-11.0)
[2025-01-08 21:37] VITALS: BP 104/73; PULSE 83
[2025-01-08 21:46] LABS: CALCIUM 8.4 mg/dL (8.5-10.1); CREATININE 0.5 mg/dL (0.6-1.0); EST CRCL DRUG DOSING (CG) 74.91 mL/min; POTASSIUM,K 3.5 mmol/L (3.6-5.2)
[2025-01-08 21:47] LABS: ANION GAP 15.5 mmol/L (5.0-14.0)
== END 2025-01-08 22:39 | disposition home or self-care (01) ==
LOC: JP.ED 21:03
DX: L76.21 Postprocedural hemorrhage of skin and subcutaneous tissue following a dermatologic procedure (principal); E78.00 Pure hypercholesterolemia, unspecified; Z88.6 Allergy status to analgesic agent; Z88.8 Allergy status to other drugs, medicaments and biological substances; Z86.16 Personal history of COVID-19
CPT/HCPCS: 36415; 71046; 71046-26; 80048; 84484; 85025; 93005; 99285

== ENCOUNTER 2025-01-09 10:37 | Emergency (ER) | payer MEDICARE ==
[2025-01-09] MEDS: Sodium Chloride 0.9% 10 ML Syringe FLUSH PRN (11:38)
[2025-01-09] MEDS: Iopamidol 612 MG/ML 100 ML Bottle IV PRN (11:38)
[2025-01-09] MEDS: Sodium Chloride 0.9% 80 ML IV ONE (11:38)
[2025-01-09 12:53] VITALS: BP 118/59; PULSE 67
== END 2025-01-09 12:59 | disposition home or self-care (01) ==
LOC: JP.ED 10:37
DX: Z47.89 Encounter for other orthopedic aftercare (principal); E78.00 Pure hypercholesterolemia, unspecified; Z88.5 Allergy status to narcotic agent; Z88.8 Allergy status to other drugs, medicaments and biological substances; Z79.899 Other long term (current) drug therapy; Z87.891 Personal history of nicotine dependence
CPT/HCPCS: 71260; 74177; 99282; Q9967; 99283